=== PATIENT | male | born 1940 | race Caucasian/White ===

== ENCOUNTER 2021-03-27 03:48 | Emergency (ER) | payer MEDICARE ==
[~2021-03-27] VITALS: Ht 172.7 cm; Wt 142.7 kg
--- NOTE | 2021-03-27 05:27 | REPVR ---
PROCEDURE INFORMATION: Exam: CT Head Without Contrast Exam date and time: 03/27/2021 4:11 AM Age: 81 years old Clinical indication: Dizziness; Additional info: New onset dizziness TECHNIQUE: Imaging protocol: Computed tomography of the head without contrast. Radiation optimization: All CT scans at this facility use at least one of these dose optimization techniques: automated exposure control; mA and/or kV adjustment per patient size (includes targeted exams where dose is matched to clinical indication); or iterative reconstruction. COMPARISON: No relevant prior studies available. FINDINGS: There is no evidence of acute intracranial hemorrhage, extra axial fluid collection or hematoma. There is mild global parenchymal volume loss, appropriate for age related involutional change. There is no midline shift or herniation. The ventricles are not dilated. No evidence of pneumocephalus. There is intracranial atherosclerosis. Mild microvascular ischemic changes suspected. No CT findings are seen at the current time to suggest changes of acute territorial vascular infarction. Note is made however, that CT changes, may lag clinical findings in acute CVA. If clinically indicated, consideration could be given to MRI with diffusion weighted imaging, due to its greater sensitivity, for early detection of acute ischemic change. Incidental intracranial calcifications are noted. No pericranial scalp hematoma is seen. Ocular postoperative changes are noted. No acute cranial vault fracture is seen. No fluid is seen within the visualized paranasal sinuses or mastoid air cells. The visualized middle ear cavities are not opacified. IMPRESSION: No evidence of acute territorial major vessel infarct, mass effect, or hemorrhage. Age related involutional changes. Intracranial atherosclerosis and mild microvascular ischemic changes. Other findings discussed above. Electronically signed by: Jt Soto On 03/27/2021 05:26:42 AM
[2021-03-27 05:28] LABS: BASO # 0.1 10^3/uL (0.0-0.2); EOS # 0.3 10^3/uL (0.0-0.5); EOS % 4.7 % (0.0-3.0); HEMATOCRIT 48.9 % (42.0-52.0); HEMOGLOBIN 15.8 g/dl (13.5-17.5); LYMPH # 1.3 10^3/uL (1.5-5.0); LYMPH % 18.1 % (24.0-44.0); MEAN CORPUSCULAR HEMOGLOBIN 33.5 pg (27.0-33.0); MEAN CORPUSCULAR HGB CONC 32.3 g/dl (32.0-36.5); MEAN CORPUSCULAR VOLUME 103.8 fl (80.0-96.0); MONO # 0.9 10^3/uL (0.0-0.8); MONO % 12.9 % (2.0-8.0); NEUTROPHILS # 4.3 10^3/uL (1.5-8.5); NEUTROPHILS % 61.7 % (36.0-66.0); PLATELET COUNT, AUTOMATED 242 10^3/uL (150-450); RED BLOOD COUNT 4.71 10^6/uL (4.30-6.10)
[2021-03-27 05:53] LABS: BLOOD UREA NITROGEN 15 MG/DL (7-18); CALCIUM LEVEL 8.6 MG/DL (8.8-10.2); CARBON DIOXIDE LEVEL 28 MEQ/L (21-32); CHLORIDE LEVEL 107 MEQ/L (98-107); CK-MB VALUE MASS 1.3 NG/ML (<3.6); CPK CREATINE PHOSPHOKINASE 71 U/L (39-308); CREATININE FOR GFR 0.99 MG/DL (0.70-1.30); GLOMERULAR FILTRATION RATE > 60.0 (>35); GLUCOSE, FASTING 117 MG/DL (70-100); MB/CK RELATIVE INDEX 1.83 (< OR =4); POTASSIUM SERUM 4.8 MEQ/L (3.5-5.1); SODIUM LEVEL 141 MEQ/L (136-145); TROPONIN I < 0.02 NG/ML (< 0.10)
--- NOTE | 2021-03-27 05:53 | REPVR ---
PROCEDURE INFORMATION: Exam: XR Chest Exam date and time: 03/27/2021 5:13 AM Age: 81 years old Clinical indication: Other: Chest pain TECHNIQUE: Imaging protocol: XR of the chest. Views: 1 view. COMPARISON: No relevant prior studies available. FINDINGS: LUNGS and PLEURAL SPACE: There is slight elevation of the left hemidiaphragm compared to the right. Lung volumes are low. Slightly elevated reticular lung markings towards the lung bases may be secondary to minimal atelectasis and/or parenchymal scarring. No consolidation, pneumothorax or pleural effusion is seen. There is opacity overlying the left lower lung field, likely related to body habitus. MEDIASTINUM: There is no mediastinal shift or widening. CARDIAC SILHOUETTE: Cardiac size may be slightly enlarged. BONY THORAX: No acute findings are seen. IMPRESSION: No acute infiltrate. Other findings discussed above. Electronically signed by: Jt Soto On 03/27/2021 05:52:50 AM
[2021-03-27] MEDS ORDERED: MECLIZINE 25 MG TABLET PO ONE (07:00)
[2021-03-27] MEDS ORDERED: MECL1TAB31 PO (07:01)
[2021-03-27 07:30] VITALS: BP 155/75
--- NOTE | 2021-03-29 16:27 | ECGEPIP ---
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
== END 2021-03-27 07:42 | disposition home or self-care (01) ==
LOC: M ED 03:48
DX: R42 Dizziness and giddiness (principal); I50.9 Heart failure, unspecified; I10 Essential (primary) hypertension; E78.5 Hyperlipidemia, unspecified